=== PATIENT | female | born 1965 | race Caucasian/White ===

== ENCOUNTER 2019-09-04 01:24 | Emergency (ER) | payer BC, OTHER ==
--- NOTE | 2019-09-04 06:56 | ER Document Report ---
ED General - General Chief Complaint: Sore Throat Stated Complaint: SORE THROAT Time Seen by Provider: 09/04/19 06:41 - HPI Notes: Ms. Reddy is a 53-year-old female with a chief complaint of sore throat, nasal congestion nonproductive cough dull headache and malaise of 3 weeks duration. Denies fever. She is non-smoker. Previously seen by physician elsewhere 1 week ago and was told that she had nasal allergies or possibly a viral infection. She was given topical nasal steroids and an oral antihistamine as well as some cough syrup. Symptoms are really no better. Intermittently having some green nasal discharge. Says it feels like at night that her throat is swelling and that she has difficulty swallowing. Pertinent prior history: Patient says she had some type of intestinal surgery for "a cyst" when she was a teenager. She is also had a previous mastectomy for breast cancer. She takes no care home medications. - Related Data Allergies/Adverse Reactions: Sulfa (Sulfonamide Antibiotics) Allergy (Verified 09/04/19 01:50) venom-wasp Allergy (Verified 09/04/19 01:50) Past Medical History - General Information source: Patient, Parent - Social History Smoking Status: Never Smoker Frequency of alcohol use: None Drug Abuse: None Lives with: Family Family History: Reviewed & Not Pertinent Patient has suicidal ideation: No Patient has homicidal ideation: No Malignancy Medical History: Reports: Hx Breast Cancer Past Surgical History: Reports: Hx Abdominal Surgery Review of Systems - Review of Systems Notes: Constitutional: As per HPI. HENT: As per HPI. Eyes: Negative for visual changes. Cardiovascular: Negative for chest pain. Respiratory: As per HPI. Gastrointestinal: Negative for abdominal pain, vomiting or diarrhea. Genitourinary: Negative for dysuria. Musculoskeletal: Negative for back pain. Skin: Negative for rash. Neurological: Negative for weakness or numbness. 10 point ROS negative except as marked above and in HPI. Physical Exam - Vital signs Vitals: Temp Pulse Resp BP Pulse Ox 99.0 F 92 18 190/114 H 96 09/04/19 01:31 09/04/19 01:31 09/04/19 01:31 09/04/19 01:31 09/04/19 01:31 - Notes Notes: GENERAL: Well-developed well-nourished appearing uncomfortable. SKIN: Good turgor no rashes. HEAD: Normocephalic atraumatic. Diffuse sinus tenderness to percussion. EYES: PERRLA. Conjunctivae and sclerae clear. EARS: CANALS AND TMS CLEAR. NOSE: White nasal drainage bilaterally. MOUTH: Moist mucosa. Good dentition. No stridor or edema. No drooling. Throat: Mild mucosal edema. No exudate. NECK: Supple. No masses or thyromegaly. Shotty anterior cervical nodes palpable bilaterally. Carotids 2+ without bruits. No JVD. BACK: Symmetrical without tenderness. CHEST: Respirations unlabored. Breath sounds clear and symmetrical. HEART: Regular rhythm. No murmur gallop or rub. ABDOMEN: Soft nontender without masses, organomegaly or rebound. Bowel sounds normally active. No bruits. GENITALIA: Deferred. EXTREMITIES: No edema. No calf tenderness. Cap refill less than 1.5 seconds. Dorsalis pedis and posterior tibial pulses 3+ and symmetrical. NEUROLOGICAL: GCS 15. Alert and oriented x3. Normal gait. Fluent speech. Cranial nerves II through XII intact. Sensorimotor and cerebellar normal. Normal tone. Course - Re-evaluation Re-evalutation: 09/04/19 06:56 Rapid strep screen negative. Clinically I think patient has a sinusitis and she is failed conservative treatment and will need antibiotics. - Vital Signs Vital signs: Temp Pulse Resp BP Pulse Ox 98.5 F 85 20 151/84 H 97 09/04/19 06:19 09/04/19 06:19 09/04/19 06:19 09/04/19 06:19 09/04/19 06:19 Discharge - Discharge Clinical Impression: Acute sinusitis Condition: Stable Disposition: HOME, SELF-CARE Additional Instructions: Sinusitis You have sinusitis, an infection of the sinus cavities of the face. The sinuses are air-filled chambers which open into the inside of the nose. Bacteria and pus fill a sinus, causing pain, drainage, and fever. Sinusitis is treated with antibiotics. Often, expectorants (to thin the sinus mucous) or decongestants (to reduce swelling) are prescribed as well. Healing requires seven to 10 days. Avoid chemical fumes, pollens, dusts, and smoke (especially cigarette smoke). Keep the air humidified in your bedroom and work area and take plenty of liquids by mouth. This condition can be serious if the infection spreads. If your symptoms worsen, or if you develop severe headache, high fever, stiff neck, or a rash, you must call the doctor or return for re-evaluation. Return here as needed for new or worsening symptoms. Take prescribed medication and continue previous prescriptions as well. Tylenol as needed. Increase oral fluids. You have been provided with a doctor's note for next 3 days for your work. Follow-up with your primary care physician if unimproved within the next 5 to 7 days. Prescriptions: Amoxicillin 1 tab PO TID #30 tab Forms: Return to Work
[2019-09-04 07:25] VITALS: BP 172/100
== END 2019-09-04 07:21 | disposition home or self-care (01) ==
LOC: ER 01:24
DX: J01.90 Acute sinusitis, unspecified (principal); J02.9 Acute pharyngitis, unspecified; R09.81 Nasal congestion; R05 Cough; R51 Headache; R53.81 Other malaise; Z88.2 Allergy status to sulfonamides; Z91.038 Other insect allergy status; Z85.3 Personal history of malignant neoplasm of breast
CPT/HCPCS: 87070; 87880; 99283